=== PATIENT | female | born 1940 | race Caucasian/White ===

== ENCOUNTER 2016-09-15 09:34 | Outpatient (CLI) | payer MEDICARE ==
[2016-09-15 10:01] LABS: BASOPHILS % 0.8 (0.0-1.5); EOSINOPHILS % 5.2 % (0.0-6.8); MEAN CORPUSCULAR HEMOGLOBIN 32.9 pg (28.0-34.0); MEAN CORPUSCULAR VOLUME 99.9 fl (80.0-100.0); MONOCYTES % 3.5 % (0.0-11.0); NEUTROPHILS # 4.8 # k/uL (1.4-7.7)
[2016-09-15 10:28] LABS: eGFR (African) 25; eGFR (Non-African) 21
[2016-09-15 17:52] LABS: IRON SERUM 114 ug/dL (37-145); VITAMIN D, 25-HYDROXY 39 ng/mL (30-100)
== END 2016-09-15 09:35 ==
LOC: LAB 09:34
PROVIDERS: ATTEND Internal Medicine Nephrology
DX: N18.3 Chronic kidney disease, stage 3 (moderate) (principal); D47.2 Monoclonal gammopathy; E03.9 Hypothyroidism, unspecified; Z87.442 Personal history of urinary calculi; Z68.1 Body mass index [BMI] 19.9 or less, adult
CPT/HCPCS: 36415; 80053; 80061; 82306; 83540; 83970; 84100; 84155; 84165; 84550; 85025

== ENCOUNTER 2016-12-28 12:02 | Outpatient (CLI) | payer MEDICARE ==
[2016-12-28 12:16] LABS: BASOPHILS % 1.1 (0.0-1.5); EOSINOPHILS % 4.7 % (0.0-6.8); MEAN CORPUSCULAR HEMOGLOBIN 32.4 pg (28.0-34.0); MEAN CORPUSCULAR VOLUME 98.9 fl (80.0-100.0); MONOCYTES % 4.3 % (0.0-11.0); NEUTROPHILS # 4.9 # k/uL (1.4-7.7)
[2016-12-28 12:46] LABS: eGFR (African) 25; eGFR (Non-African) 21
== END 2016-12-28 12:03 ==
LOC: LAB 12:02
PROVIDERS: ATTEND Internal Medicine Nephrology
DX: N18.3 Chronic kidney disease, stage 3 (moderate) (principal); D47.2 Monoclonal gammopathy; E03.9 Hypothyroidism, unspecified; Z87.442 Personal history of urinary calculi; Z68.1 Body mass index [BMI] 19.9 or less, adult
CPT/HCPCS: 36415; 80053; 85025

== ENCOUNTER → 2017-07-01 | Outpatient (CLI) | payer MEDICARE ==
[2017-07-01 12:40] LABS: BASOPHILS % 1.7 (0.0-1.5); EOSINOPHILS % 4.8 % (0.0-6.8); MEAN CORPUSCULAR HEMOGLOBIN 31.8 pg (28.0-34.0); MEAN CORPUSCULAR VOLUME 97.4 fl (80.0-100.0); MONOCYTES % 3.4 % (0.0-11.0)
[2017-07-01 13:25] LABS: eGFR (African) 18; eGFR (Non-African) 15
== END ==
LOC: LAB 12:17
PROVIDERS: ATTEND Internal Medicine Nephrology
DX: N18.3 Chronic kidney disease, stage 3 (moderate) (principal); D47.2 Monoclonal gammopathy; E03.9 Hypothyroidism, unspecified; Z87.442 Personal history of urinary calculi
CPT/HCPCS: 36415; 80053; 80061; 82330; 84550; 85025

== ENCOUNTER 2017-11-09 11:30 | Outpatient (CLI) | payer MEDICARE ==
[2017-11-09 12:10] LABS: BASOPHILS % 1.2 (0.0-1.5); EOSINOPHILS % 5.5 % (0.0-6.8); MEAN CORPUSCULAR HEMOGLOBIN 31.9 pg (28.0-34.0); MEAN CORPUSCULAR VOLUME 95.6 fl (80.0-100.0); MONOCYTES % 4.5 % (0.0-11.0); NEUTROPHILS # 3.4 # k/uL (1.4-7.7)
[2017-11-09 12:21] LABS: eGFR (African) 15; eGFR (Non-African) 13
== END 2017-11-09 11:32 ==
LOC: LAB 11:30
PROVIDERS: ATTEND Internal Medicine Nephrology
DX: N18.3 Chronic kidney disease, stage 3 (moderate) (principal); D47.2 Monoclonal gammopathy; E03.9 Hypothyroidism, unspecified; Z87.442 Personal history of urinary calculi
CPT/HCPCS: 36415; 80053; 80061; 84550; 85025

== ENCOUNTER 2018-01-30 13:55 | Outpatient (CLI) | payer MEDICARE ==
[2018-01-30 14:32] LABS: BASOPHILS % 0.7 (0.0-1.5); EOSINOPHILS % 3.4 % (0.0-6.8); MEAN CORPUSCULAR HEMOGLOBIN 30.2 pg (28.0-34.0); MEAN CORPUSCULAR VOLUME 92.8 fl (80.0-100.0); MONOCYTES % 2.7 % (0.0-11.0); NEUTROPHILS # 7.1 # k/uL (1.4-7.7)
[2018-01-30 15:18] LABS: eGFR (African) 18; eGFR (Non-African) 15
== END 2018-01-30 13:56 ==
LOC: LAB 13:55
PROVIDERS: ATTEND Internal Medicine Nephrology
DX: N18.5 Chronic kidney disease, stage 5 (principal); D47.2 Monoclonal gammopathy; E03.9 Hypothyroidism, unspecified; Z87.442 Personal history of urinary calculi
CPT/HCPCS: 36415; 80053; 82340; 83970; 84100; 84443; 84550; 85025

== ENCOUNTER 2018-07-12 14:28 | Outpatient (CLI) | payer MEDICARE ==
[2018-07-12 15:30] LABS: MEAN CORPUSCULAR HEMOGLOBIN 31.2 pg (28.0-34.0)
[2018-07-12 15:31] LABS: BASOPHILS % 0.3 (0.0-1.5); MONOCYTES % 4.1 % (0.0-11.0); NEUTROPHILS # 4.5 # k/uL (1.4-7.7)
[2018-07-14 17:18] LABS: eGFR (Non-African) 15
== END 2018-07-12 14:30 ==
LOC: LAB 14:28
PROVIDERS: ATTEND Internal Medicine Nephrology
DX: N18.3 Chronic kidney disease, stage 3 (moderate) (principal); D47.2 Monoclonal gammopathy; E03.9 Hypothyroidism, unspecified; Z87.442 Personal history of urinary calculi; Z68.1 Body mass index [BMI] 19.9 or less, adult
CPT/HCPCS: 36415; 80053; 82306; 84155; 84165; 85025